=== PATIENT | male | born 1990 | race Caucasian/White ===

== ENCOUNTER 2019-10-16 09:23 | Emergency (ER) | payer BC ==
[~2019-10-16] VITALS: Ht 180.3 cm; Wt 72.2 kg
[2019-10-16 09:43] VITALS: BP 12/76
--- NOTE | 2019-10-16 10:20 | NUR ---
reports having genital herpes for 4 years and wants to have checked.
[2019-10-16 10:36] LABS: CLARITY,URINE CLEAR (Clear); COLOR,URINE YELLOW (Yellow); GLUCOSE, URINE NEGATIVE (Neg); KETONES,URINE NEGATIVE (Neg); LEUKOCYTE ESTERASE ,URINE NEGATIVE (Neg); NITRITES, URINE NEGATIVE (Neg); OCCULT BLOOD,URINE NEGATIVE (Neg); PROTEIN,URINE NEGATIVE (Neg); UROBILINOGEN,URINE 0.2 E.U/dL (0.2-1.0)
[2019-10-16 10:37] LABS: UA COLLECTION TYPE NON-SPECIFIED
[2019-10-16] MEDS ORDERED: CEPH250T PO (11:29)
[2019-10-16] MEDS ORDERED: ACYC-202 PO (11:29)
[2019-10-16] MEDS ORDERED: cephalexin 250mg capsule PO ONE (11:30)
== END 2019-10-16 11:53 | disposition home or self-care (01) ==
LOC: ER 09:24
DX: N50.9 Disorder of male genital organs, unspecified (principal); Z11.3 Encounter for screening for infections with a predominantly sexual mode of transmission; Z79.899 Other long term (current) drug therapy
CPT/HCPCS: 36415; 81003; 86695; 87491; 99283